=== PATIENT | female | born 1945 | race Caucasian/White ===

== ENCOUNTER 2017-04-02 14:30 | Inpatient (IN) ==
[2017-04-02 16:53] LABS: MANUAL DIFF NEEDED? NO
[2017-04-02 16:57] LABS: BASO% 0.4 % (0.0-0.8); EOS# 0.14 X1000 (0.0-0.7); EOS% 1.8 % (0.0-10.0); HEMATOCRIT 35.5 % (37.0-47.0); HEMOGLOBIN 11.7 g/dL (12.0-16.0); IMM GRAN# 0.03 X1000 (0.0-0.04); IMM GRAN% 0.4 % (0.0-0.5); LYMPH# 2.72 X1000 (1.2-3.4); LYMPH% 34.6 % (20.5-51.1); MCH 27.2 PG (27-31); MCV 82.6 FL (81-99); MONO# 0.67 X1000 (0.11-0.59); MONO% 8.5 % (1.7-9.3); MPV 9.5 FL (7.4-10.4); NEUT% 54.3 % (42.2-75.2); PLT 233 X1000 (130-400)
[2017-04-02 17:11] LABS: INR 0.95; PROTIME 9.9 Seconds (9.2-11.7)
[2017-04-02 17:13] LABS: HEMOGLOBIN A1C 5.8 % (4.8-6.0)
[2017-04-02 17:16] LABS: PTT HEPARIN PROTOCOL 25.3 Seconds
[2017-04-02 17:17] LABS: URINE CULTURE NEEDED? NO; URINE SOURCE CLEAN CATCH
[2017-04-02 17:21] LABS: BILIRUBIN URINE NEGATIVE (NEGATIVE); BLOOD URINE NEGATIVE (NEGATIVE); COLOR YELLOW; GLUCOSE URINE NEGATIVE (NEGATIVE); LEUKOCYTES URINE NEGATIVE (NEGATIVE); NITRITE URINE NEGATIVE (NEGATIVE); PH URINE 6.5; PROTEIN URINE TRACE mg/dL (NEGATIVE); SP GRAVITY URINE 1.021; TURBIDITY URINE HAZY (CLEAR); UROBILINOGEN URINE NORMAL (NORMAL)
[2017-04-02 17:22] LABS: UR EPITHELIAL CELLS <10 /HPF (<10); URINE BACTERIA NEGATIVE /HPF; URINE MICRO REVIEW NEEDED? YES; URINE RBC <10 /HPF (<10); URINE WBC <10 /HPF (<10)
[2017-04-02 17:28] LABS: URINE CASTS NONE SEEN; URINE CRYSTALS CA OXALATE PRESENT
[2017-04-02 17:35] LABS: AGAP 14; ALBUMIN 3.8 g/dL (3.5-5.0); ALKALINE PHOSPHATASE 72 U/L (32-104); BUN 16 mg/dL (8-22); CALCIUM 9.1 mg/dL (8.8-10.2); CHLORIDE 100 mmol/L (98-107); COSMO 274; GOT 19 U/L (10-30); GPT 19 U/L (10-36); SODIUM 137 mmol/L (136-145); TCO2 23 mmol/L (25-35); TOTAL BILIRUBIN 0.23 mg/dL (0.20-1.00); TOTAL PROTEIN 7.8 g/dL (6.3-8.3)
[2017-04-02] MEDS: LOVENOX SUBQ SCH (17:43)
[2017-04-02] MEDS: PROTONIX IV SCH (17:43)
[2017-04-02] MEDS: LEVAQUIN 750 MG/D5W 750 MG/150 ML IVPB IV SCH (17:43)
[2017-04-02] MEDS: SODIUM CHLORIDE 0.9% INJ SCH (17:43)
[2017-04-02] MEDS: NS + KCL 20 MEQ 1,000 ML IV SCH (17:43)
[2017-04-02] MEDS ORDERED: NORCO-5 PO PRN (18:12)
--- NOTE | 2017-04-02 18:28 | HISTORY AND PHYSICAL ---
CHIEF COMPLAINT: Chest congestion, cough, wheezing and headache not responding to outpatient treatment. HISTORY OF PRESENT ILLNESS: Ms. Caldera, 72-year-old white female patient, complaining of chest congestion, cough, expectoration which was thick, difficult to expectorate, low-grade fever, chest soreness when she coughs. The patient also had headache and sinus drainage at times. Her drainage was bloody. The patient was feeling weak. Oral intake was poor. The patient had multiple ER visits also visit to my office. Initially I gave her Ceftin then she received Z-Russ. Patient came to the emergency room here . She was checked for flu. She was given steroid pack, also Augmentin. Patient finished antibiotics. The patient claims she is not feeling well. The patient had diarrhea. No blood or mucus in the stool. She still has cough and wheezing. The patient came to my office for evaluation. As patient was not responding to outpatient treatment, she was getting sick, I decided to admit her for further care. The patient had mild nausea but no vomiting. Denied any diplopia or blurred vision. No neck stiffness. No typical chest pain. Occasional palpitations. She did have cough, wheezing. Her expectoration was thick. No hemoptysis. Epigastric discomfort, at times heartburn. Some discomfort in the throat. No vaginal discharge, spotting, bleeding. No leg swelling. The patient has significant arthritic pain in both the knees much more in the left. Patient is scheduled to have left knee replacement but waiting for her infection to be cleared. Unquantified weight loss. No heat or cold intolerance. At times, polyuria, polydipsia. No further history available at this time. The patient does feel depressed and stressed at time. ALLERGIES: Patient is allergic to naproxen, diclofenac, imipramine, diphenhydramine. CURRENT MEDICATIONS: Includes patient is on Singulair, Protonix, Zoloft, Carafate, estradiol, Norvasc. PAST MEDICAL HISTORY: Significant for hypertension, menopause, gastritis and reflux disease, situational depression, osteoarthritis. Patient had hysterectomy, hernia repair. FAMILY HISTORY: Significant for hypertension. REVIEW OF SYSTEMS: As per HPI. Otherwise unobtainable. PHYSICAL EXAMINATION: GENERAL: Elderly white female patient in mild distress. VITAL SIGNS: Blood pressure 167/76, pulse 70, respirations 20, temperature 98.3 degrees. SKIN: Senile turgor. HEENT: Head atraumatic, normocephalic. [place] conjunctivae. Anicteric sclerae. Extraocular muscle movement normal. Fundus cannot be penetrated. Good oral hygiene. No tonsillopharyngeal congestion or exudate. Ears and nose benign. Minimal tenderness on both maxillary sinus. NECK: Supple. No JVD, thyromegaly or lymphadenopathy. CHEST: Bilateral good air entry present. Bilateral expiratory wheezing. Few basal crepitations. CARDIOVASCULAR: S1 and S2 heard. No gallop or thrill. ABDOMEN: Soft. No distention. Bowel sounds present. Mild epigastric tenderness. No guarding or rigidity. EXTREMITIES: No cyanosis, clubbing. No acute DVT. LICSW: Alert, awake, able to move all 4 limbs. Patient does have significant arthritis both the knee joints. LAB DATA: Hemoglobin 11.7, hematocrit 35.5, WBC count 7.87, platelet count 233,000. PT, PTT were normal. Electrolytes fairly benign. ProBNP was normal. Hemoglobin A1c 5.8. Urinalysis was unremarkable. Patient did have some calcium oxalate crystal. CONSIDERATION: 1. Acute asthmatic bronchitis not responding to outpatient treatment. 2. Hypertension. 3. Moderate to severe headache. 4. Gastritis and reflux disease. 5. Osteoarthritis. 6. Diarrhea. 7. Situational depression. PLAN: Admit the patient. Will try IV Levaquin. Septic workup. Close observation. IV hydration. I am going to try small dose of Solu-Medrol, pulmonary toilet, bronchodilator treatment. Overall plan discussed at length with the patient and her family. DVT and GI prophylaxis. cc: Sahil Sena MD
[2017-04-02] MEDS: DUONEB (A & A) INH SCH ×2 (18:37→21:05)
[2017-04-02 18:43] LABS: ALLEN TEST YES; BE -4.1 mmoll (-3.0-3.0); BLOOD TYPE ARTERIAL; DRAW SITE L RADIAL; METHB 0.9 % (0.0-1.5); O2(CT) 16.3 mL/dL (15.0-23.0); PCO2(98.6) 31 mmHg (35-45); PO2(98.6) 108 mmHg (60-100); SAMPLE BLOOD; THB 11.8 g/dL (11.5-17.4); pH(98.6) 7.41 (7.35-7.45)
[2017-04-02 18:46] LABS: MODALITY ROOM AIR
--- NOTE | 2017-04-02 20:05 | Diag Imaging Result Document ---
PROCEDURE NAME: HEAD W/O CONTRAST - 04/02/2017 COMPARISON: None available. FINDINGS: There is no discrete intracranial mass, mass effect, or intracranial hemorrhage. There is no evidence of acute infarct given the limited sensitivity of CT versus MRI. There is no evidence of hydrocephalus. There is a tiny left frontal sinus mucous retention cyst. Otherwise, the partially imaged paranasal sinuses are unremarkable. Surrounding soft tissues and bony structures are grossly unremarkable, otherwise. IMPRESSION: 1. No evidence of acute intracranial pathology. 2. Tiny left frontal sinus mucous retention cyst.
[2017-04-02] MEDS: CARAFATE PO SCH (21:10)
--- NOTE | 2017-04-02 23:25 | Diag Imaging Result Document ---
PROCEDURE NAME: CHEST-PORTABLE - 04/02/2017 SINGLE FRONTAL RADIOGRAPH OF THE CHEST: COMPARISON: 03/26/2017. FINDINGS: There is evidence of prior granulomatous disease, stable. The lungs are grossly clear. There is no definite pleural fluid collection. There is a stable hiatal hernia. Cardiac silhouette and central vasculature are unchanged. IMPRESSION: Stable chest with no evidence of acute pathology.
[2017-04-03] MEDS: SOLU-MEDROL IV SCH ×3 (02:19→14:12)
[2017-04-03] MEDS: DUONEB (A & A) INH SCH ×5 (03:29→21:15)
[2017-04-03] MEDS ORDERED: PROTONIX PO SCH (09:00)
[2017-04-03] MEDS ORDERED: FIORICET PO PRN (09:55)
[2017-04-03] MEDS ORDERED: KLONOPIN PO PRN (09:56)
[2017-04-03] MEDS: ESTRACE PO SCH (10:20)
[2017-04-03] MEDS: SINGULAIR PO SCH (10:20)
[2017-04-03] MEDS: SYNTHROID PO SCH (10:20)
[2017-04-03] MEDS: CARAFATE PO SCH ×5 (10:20→22:16)
[2017-04-03] MEDS: ZOLOFT PO SCH (10:20)
[2017-04-03] MEDS: NORVASC PO SCH (10:20)
--- NOTE | 2017-04-03 10:38 | PROGRESS NOTE ---
DATE: 04/03/2017 SUBJECTIVE: Ms. Caldera is doing fair. She is still complaining of cough, chest congestion, headache. No nausea. The patient still has diarrhea. No blood or mucus in the stool. The patient claims she was not able to sleep well last night. Her workup, including CT scan, chest x- ray, and blood gas, results reviewed and discussed with the patient. OBJECTIVE: Vital Signs: Her vital signs were noted. Neck: Supple. No JVD. Lungs: Bilateral expiratory wheezing. Cardiovascular: S1 and S2 heard. Abdomen: Soft, globular. Bowel sounds present. Extremities: No cyanosis, clubbing. No acute DVT. Central Nervous System: Alert, awake, able to move all 4 limbs. CONSIDERATION/PLAN: Acute asthmatic bronchitis, not responding to outpatient treatment. The patient claims it is very hard for her to expectorate. I am going to add Mucomyst nebulizer treatment, decrease her steroid to every 12 hours. The patient does have problems sleeping at night. The patient claims [place] is too strong. I will try Esgic for her headache. Her other problems include hypothyroidism, osteoarthritis, hypertension. Labs and medications noted. We will continue current treatment and close observation. The overall plan was discussed with the patient and family, and they are in agreement. Her blood gas results reviewed. cc: Sahil Sena MD
[2017-04-03] MEDS: MUCOMYST 20% INH SCH ×2 (14:55→21:15)
[2017-04-03] MEDS: NS + KCL 20 MEQ 1,000 ML IV SCH ×2 (15:46→17:40)
[2017-04-03] MEDS: SODIUM CHLORIDE 0.9% INJ SCH (17:40)
[2017-04-03] MEDS: LOVENOX SUBQ SCH (17:40)
[2017-04-03] MEDS: PROTONIX IV SCH (17:40)
[2017-04-03] MEDS: LEVAQUIN 750 MG/D5W 750 MG/150 ML IVPB IV SCH (18:00)
[2017-04-03] MEDS: NORCO-5 PO PRN (22:17)
[2017-04-04] MEDS: SOLU-MEDROL IV SCH ×2 (03:22→13:20)
[2017-04-04] MEDS: NS + KCL 20 MEQ 1,000 ML IV SCH ×2 (03:22→16:21)
[2017-04-04] MEDS: DUONEB (A & A) INH SCH ×4 (03:26→19:34)
[2017-04-04 06:20] LABS: MANUAL DIFF NEEDED? NO
[2017-04-04 06:54] LABS: HEMATOCRIT 32.3 % (37.0-47.0); HEMOGLOBIN 10.3 g/dL (12.0-16.0); IMM GRAN# 0.06 X1000 (0.0-0.04); IMM GRAN% 0.8 % (0.0-0.5); LYMPH% 17.7 % (20.5-51.1); MCH 26.7 PG (27-31); MCHC 31.9 g/dL (33-37); MCV 83.7 FL (81-99); MONO# 0.34 X1000 (0.11-0.59); MONO% 4.6 % (1.7-9.3); MPV 9.7 FL (7.4-10.4); NEUT% 76.9 % (42.2-75.2); PLT 220 X1000 (130-400); RBC 3.86 XMIL (4.2-5.4)
[2017-04-04 07:06] LABS: AGAP 12; ALBUMIN 3.6 g/dL (3.5-5.0); ALKALINE PHOSPHATASE 63 U/L (32-104); BUN 12 mg/dL (8-22); CALCIUM 9.2 mg/dL (8.8-10.2); CHLORIDE 107 mmol/L (98-107); COSMO 282; GOT 13 U/L (10-30); GPT 14 U/L (10-36); POTASSIUM 4.5 mmol/L (3.5-5.1); SODIUM 140 mmol/L (136-145); TCO2 21 mmol/L (25-35); TOTAL BILIRUBIN 0.19 mg/dL (0.20-1.00); TOTAL PROTEIN 7.5 g/dL (6.3-8.3)
--- NOTE | 2017-04-04 07:22 | PROGRESS NOTE ---
DATE: 04/04/2017 SUBJECTIVE: Ms. Caldera is feeling somewhat better today. She still has some sinus drainage and headache. Yesterday patient claims Esgic was not helping and she wanted to change to [place] and we did. She was able to rest better. No typical chest pain. No diarrhea, no runny nose, stuffy nose. OBJECTIVE: Vital Signs: Her vital signs reviewed. Lungs: Bilateral occasional wheezing. Cardiovascular: S1 and S2 heard. Abdomen: Soft. No distention. Bowel sounds present. Extremities: No cyanosis, clubbing. No acute deep venous thrombosis. BEHAVIORAL MEDICAL DIRECTOR: Alert, awake, able to move all 4 limbs. LAB DATA: Done today. CBC fairly benign. I am waiting for electrolytes result. I am going to get x-ray of the paranasal sinuses. CONSIDERATION: 1. Acute asthmatic bronchitis. I started her on Mucomyst. The patient is on steroid and antibiotics and nebulizer treatment. Patient's seems to be doing better. H 2. Hypertension. 3. Osteoarthritis. 4. Hypothyroidism. Overall, the patient seems to be improving slowly. We will continue current treatment and close observation. cc: Sahil Sena MD
--- NOTE | 2017-04-04 08:23 | Diag Imaging Result Document ---
PROCEDURE NAME: PARANASAL SINUSES - 04/04/2017 CT OF THE PARANASAL SINUSES WITHOUT CONTRAST: COMPARISON: CT head dated 04/02/2017. No prior dedicated paranasal sinus CT is available for comparison. FINDINGS: There is paranasal sinus mucosal thickening involving the maxillary sinuses bilaterally with bilateral maxillary sinus air-fluid levels suggesting acute sinusitis. There is only mild ethmoid sinus mucosal thickening. The ostiomeatal units are patent. The nasal cavity is clear. The mastoid air cells are clear. The surrounding bony structures are grossly intact. Surrounding soft tissues are grossly unremarkable. IMPRESSION: Bilateral maxillary and minimal ethmoid sinus mucosal disease with maxillary sinus air-fluid levels suggesting acute sinusitis.
[2017-04-04] MEDS: MUCOMYST 20% INH SCH (09:07)
[2017-04-04] MEDS ORDERED: NITROGLYCERIN SL ONE (09:44)
[2017-04-04] MEDS ORDERED: NITROGLYCERIN ONE (09:47)
[2017-04-04] MEDS ORDERED: ADENOCARD IV ONE (09:53)
[2017-04-04] MEDS ORDERED: MORPHINE ONE (09:54)
[2017-04-04] MEDS ORDERED: MORPHINE IV ONE (09:54)
[2017-04-04] MEDS ORDERED: ASPIRIN EC PO ONE (10:34)
[2017-04-04] MEDS ORDERED: MORPHINE IV PRN (10:50)
[2017-04-04] MEDS ORDERED: MAGNESIUM SULFATE 2 GM/S.W.I. 2 GM/50 ML IVPB IV ONE (10:50)
[2017-04-04] MEDS ORDERED: LOPRESSOR PO SCH (11:30)
[2017-04-04] MEDS: CARAFATE PO SCH ×5 (11:35→20:18)
[2017-04-04] MEDS: ABREVA CREAM TOP SCH ×5 (11:35→20:18)
[2017-04-04] MEDS: NORVASC PO SCH (11:42)
[2017-04-04] MEDS: SINGULAIR PO SCH (11:42)
[2017-04-04] MEDS: ESTRACE PO SCH (11:42)
[2017-04-04] MEDS: ZOLOFT PO SCH (11:42)
[2017-04-04] MEDS: SYNTHROID PO SCH (11:43)
--- NOTE | 2017-04-04 11:47 | PROGRESS NOTE ---
DATE: 04/04/2017 SUBJECTIVE: I came to see Ms. Werner avelar because the patient was complaining of chest pain and she had tachycardia. Telemetry called. Her heart rate was going up. It was 140-160. The patient was complaining of chest pain which was left precordial. What she described was tightness. She did have mild shortness of breath which patient claims she had most of the time. We gave her nitroglycerin with no significant improvement. I gave her 2 mg of morphine. The patient felt some better. The patient also received 6 mg of adenosine. Heart rate from 140 came down to 120. The patient felt better. She was resting. Because of her chest pain, we did order cardiac isoenzymes. Decided to transfer patient to ICU for close monitoring. Her risk factors include hypertension, hyperlipidemia, menopause. Patient admitted for acute asthmatic bronchitis. The patient does have gastritis and reflux disease. She denied any nausea or vomiting. When I evaluated this morning, patient was feeling better. PHYSICAL EXAMINATION: Vital Signs: Her vital signs noted. Neck: Supple. No JVD. Lungs: Bilateral good air entry present. CVS: S1 and S2. Tachycardia. Abdomen: Soft. No distention. Bowel sounds present. Extremities: No cyanosis, clubbing. No acute DVT. SVP PROGRAMMATIC TV: Alert, awake. Able to move all 4 limbs. LAB DATA: Done this morning reviewed. We are going to check serial EKG, cardiac isoenzymes. PLAN: Cardiology consult. The patient received morphine. I am going to check her magnesium. Overall plan discussed with the patient and her . Her cardiac isoenzymes were negative. Her magnesium was 1.5. I am going to supplement magnesium. CONSIDERATION: 1. Chest pain, rule out myocardial infarction. 2. Supraventricular tachycardia. 3. Hypertension. 4. Sinusitis. 5. Acute asthmatic bronchitis. 6. Gastritis and reflux disease. cc: Sahil Sena MD
--- NOTE | 2017-04-04 12:32 | Diag Imaging Result Document ---
PROCEDURE NAME: CHEST-PORTABLE - 04/04/2017 COMPARISON: 04/02/2017. FINDINGS: Electrode pad projects over the left chest wall. The lungs appear to be grossly clear. There is no definite pleural fluid collection. Cardiac silhouette and central vasculature are grossly unremarkable. IMPRESSION: No evidence of acute chest pathology by plain radiograph.
--- NOTE | 2017-04-04 14:16 | CONSULTATION ---
DATE OF CONSULTATION: 04/04/2017 REASON FOR CONSULTATION: Cardiology was consulted for SVT. HISTORY OF PRESENT ILLNESS: Ms. Michaela Caldera is a 72-year-old lady with who has history of hypertension, was admitted with cough, expectoration, low-grade fevers, chest soreness, headache and sinus drainage. She was admitted with acute bronchitis and sinusitis, started on antibiotics. Had multiple visits to the ER. Initially she had been given Ceftin, Z-Russ and Augmentin. She finished her antibiotics. She came in with worsening cough and wheezing and was admitted and antibiotics started. Today she had a breathing treatment and after that, she went into rapid ventricular rate and had electrocardiogram done that revealed supraventricular tachycardia. She was given adenosine, converted to sinus rhythm, and transferred to ICU. She is currently in normal sinus rhythm. Associated with this tachycardia, she had some chest tightness and diaphoresis. Prior to this episode, she has not had any previous cardiac history of SVT or coronary artery disease. REVIEW OF SYSTEMS: A 14-point review of system was done.GI System: There is no history of nausea, vomiting, diarrhea. There is no history of melena. Central nervous system: No focal weakness to suggest a CVA or TIA. Gu system: There is no dysuria or hematuria. Respiratory system: As above. Cardiovascular System: As above. ALLERGIES: The patient is allergic to Naprosyn, diclofenac, imipramine, and diphenhydramine. PAST MEDICAL HISTORY: Hypertension, gastroesophageal reflux disease, depression, osteoarthritis. PAST SURGICAL HISTORY: Hysterectomy and hernia repair. SOCIAL HISTORY: She does not smoke. There is no history of alcohol abuse. CURRENT MEDICATIONS: Amlodipine 5 mg a day, clonazepam 0.5 b.i.d., Lovenox for 30 mg subcutaneously, Estrace, Robitussin, levofloxacin IV 750 mg, levothyroxine 100, prednisone, metoprolol 25 mg b.i.d. PHYSICAL EXAMINATION: Vital Signs: Blood pressure was 114/60. Cardiovascular: Normal jugular venous pressure. First and second heart sounds were heard. There is no S3 gallop. Respiratory: Bilateral expiratory wheeze. Abdomen: Soft, nontender. There was no guarding or rigidity. Bowel sounds were heard. Central nervous system: Alert and oriented. Moving all 4 extremities. Extremities: Examination of extremities revealed no pedal edema. HEENT: Atraumatic, normocephalic. Pupils were equal and reacting to light. LABORATORY STUDIES: Sodium 140, potassium 4.5, BUN 12, creatinine 0.8. Cardiac enzyme negative. WBC 7.3, hemoglobin 10.3, hematocrit 32, platelet count of 220,000. DIAGNOSTIC DATA: Head CT and sinuses CT done. There was no obvious intracardiac intracranial pathology. Sinus CT revealed bilateral maxillary and ethmoid sinusitis with air-fluid levels. ASSESSMENT AND PLAN: Ms. Michaela Caldera is a 72-year-old lady with history of hypertension who is admitted with bronchitis and sinusitis. She is on IV antibiotics. Today she went into supraventricular tachycardia and which was converted to sinus rhythm with Adenosine. RECOMMENDATIONS: 1. She has significant wheezing. I will discontinue the beta-blockers and Norvasc. We will put her on Cardizem 60 mg p.o. q.8 h. and change to long-acting Cardizem in the morning. 2. We will get an echocardiogram to assess cardiac and valvular function. 3. She has significant bronchitis and sinusitis. Once clinically she is better from the bronchitis and sinusitis, we will plan for a stress test to rule out ischemia. Thank you for the consult. We will follow hospital course. cc: MD Sahil Baum MD
--- NOTE | 2017-04-04 15:19 | ECHO REPORT ---
ORDER DATE: 04/04/2017 ECHOCARDIOGRAPHIC MEASUREMENTS: 1. Interventricular septum 1.2. Left ventricular posterior wall 1.1. Diastolic diameter 4.2. Left atrium 4.4. Aorta 2.4. Mitral valve was normal. Tricuspid valve was normal. 2. Aortic valve leaflets were trileaflet, mildly sclerosed, opening normally. Pulmonic valve was normal. There is trace pulmonary regurgitation. Normal left ventricular cavity size. Estimated ejection fraction of 60-65%. There is mild left atrial enlargement. 3. Doppler studies reveal mild tricuspid regurgitation. Peak velocity across the tricuspid valve less than 2 m/sec. There is trace to mild mitral regurgitation. 4. Peak velocity across the aortic valve less than 2 m/sec. By Doppler studies there is no aortic stenosis or regurgitation. 5. There is no pericardial effusion or obvious intracardiac mass or thrombus seen. cc: MD Sahil Baum MD
[2017-04-04] MEDS: CARDIZEM PO SCH ×2 (16:19→20:18)
[2017-04-04] MEDS: SODIUM CHLORIDE 0.9% INJ SCH (16:28)
[2017-04-04] MEDS: PROTONIX IV SCH (16:28)
[2017-04-04] MEDS: LOVENOX SUBQ SCH (17:24)
[2017-04-04] MEDS: LEVAQUIN 750 MG/D5W 750 MG/150 ML IVPB IV SCH (17:24)
[2017-04-04] MEDS: NORCO-5 PO PRN (22:06)
[2017-04-05] MEDS: NS + KCL 20 MEQ 1,000 ML IV SCH ×4 (00:01→16:08)
[2017-04-05] MEDS: SOLU-MEDROL IV SCH ×2 (01:59→14:21)
[2017-04-05] MEDS: DUONEB (A & A) INH SCH ×4 (03:51→21:02)
--- NOTE | 2017-04-05 05:33 | EKG Report ---
Test Performed on : 04/04/2017 11:46:53 AM Test Reason : Chest Pain Blood Pressure : / mmHG Vent. Rate : 111 BPM Atrial Rate : 111 BPM P-R Int : 146 ms QRS Dur : 070 ms QT Int : 296 ms P-R-T Axes : 057 020 239 degrees QTc Int : 402 ms Sinus tachycardia. Nonspecific ST and T wave abnormality Abnormal ECG When compared with ECG of 04-APR-2017 09:41, (Unconfirmed) Vent. rate has decreased BY [address] no longer depressed in Lateral leads Confirmed by Will LACY, Anthony Rodriguez ([id number]) on 04/05/2017 11:23:37 AM
--- NOTE | 2017-04-05 05:33 | EKG Report ---
Test Performed on : 04/04/2017 09:41:21 AM Test Reason : Chest Pain Blood Pressure : / mmHG Vent. Rate : 169 BPM Atrial Rate : 170 BPM P-R Int : 000 ms QRS Dur : 074 ms QT Int : 282 ms P-R-T Axes : 000 025 228 degrees QTc Int : 472 ms Supraventricular tachycardia. Marked ST abnormality, possible inferior subendocardial injury Abnormal ECG When compared with ECG of 02-APR-2017 16:21, (Unconfirmed) Vent. rate has increased BY [address] now depressed in Inferior leads ST now depressed in Anterolateral leads Inverted T waves have replaced nonspecific T wave abnormality in Inferior leads Inverted T waves have replaced nonspecific T wave abnormality in Lateral leads Confirmed by Will LACY, Anthony Rodriguez ([id number]) on 04/05/2017 11:23:30 AM
--- NOTE | 2017-04-05 06:04 | EKG Report ---
Test Performed on : 04/02/2017 4:21:17 PM Test Reason : bronchitis Blood Pressure : / mmHG Vent. Rate : 071 BPM Atrial Rate : 071 BPM P-R Int : 162 ms QRS Dur : 082 ms QT Int : 378 ms P-R-T Axes : 023 016 -39 degrees QTc Int : 410 ms Normal sinus rhythm. Nonspecific T wave abnormality Abnormal ECG No previous ECGs available Confirmed by Will LACY, Anthony Rodriguez ([id number]) on 04/05/2017 11:20:19 AM
--- NOTE | 2017-04-05 07:11 | PROGRESS NOTE ---
DATE: 04/05/2017 SUBJECTIVELY: Ms. Caldera is doing better. I transferred her to the unit yesterday. Patient had supraventricular tachycardia associated with chest pain. Myocardial infarction ruled out by negative cardiac isoenzymes. Patient EKG revealed nonspecific ST-T wave changes. The patient denied any chest pain. Her headache is better with [place]. No fever or chills. Denied any nausea or vomiting. OBJECTIVE: Vital signs: Reviewed. Neck: Is supple. No JVD. Lungs: Bilateral good air entry present. Heart: S1 and S2 heard. Abdomen: Soft, globular. Bowel sounds present. WOOD PATTERNMAKER APPRENTICE: Alert, awake. Able to move all 4 limbs. CONSIDERATION: The patient had tenderness on maxillary sinuses. Blood or cardiac isoenzymes were negative. CT scan of the sinuses did reveal sinusitis. Overall patient is doing better. Cardiology evaluation reviewed. PLAN: Plan is to continue current treatment. I am going to transfer patient to telemetry bed. Continue rest of the treatment and close observation. Overall plan discussed with the patient. She is in agreement. cc: Sahil Sena MD
[2017-04-05] MEDS: ABREVA CREAM TOP SCH ×5 (09:59→20:29)
[2017-04-05] MEDS: ZOLOFT PO SCH (10:02)
[2017-04-05] MEDS: SINGULAIR PO SCH (10:03)
[2017-04-05] MEDS: SYNTHROID PO SCH (10:03)
[2017-04-05] MEDS: CARDIZEM PO SCH (10:03)
[2017-04-05] MEDS: CARAFATE PO SCH ×4 (10:03→20:29)
[2017-04-05] MEDS: ESTRACE PO SCH (10:35)
[2017-04-05] MEDS: CARDIZEM CD PO SCH (15:15)
[2017-04-05] MEDS: PROTONIX IV SCH (16:50)
[2017-04-05] MEDS: SODIUM CHLORIDE 0.9% INJ SCH (16:50)
[2017-04-05] MEDS: LOVENOX SUBQ SCH (16:52)
[2017-04-05] MEDS: LEVAQUIN 750 MG/D5W 750 MG/150 ML IVPB IV SCH (16:53)
[2017-04-05] MEDS: ROBITUSSIN-AC PO PRN (18:06)
[2017-04-05] MEDS: NORCO-5 PO PRN (20:35)
[2017-04-06] MEDS: NS + KCL 20 MEQ 1,000 ML IV SCH ×3 (01:16→12:29)
[2017-04-06] MEDS: SOLU-MEDROL IV SCH ×2 (02:40→13:23)
[2017-04-06] MEDS: DUONEB (A & A) INH SCH ×4 (03:09→19:40)
--- NOTE | 2017-04-06 07:22 | PROGRESS NOTE ---
DATE: 04/06/2017 SUBJECTIVE: Ms. Caldera is doing fair. The patient is still has a cough and chest congestion, scratchy throat. No hemoptysis or spitting up of blood. No high-grade fever or chills. No chest pain. OBJECTIVE: Vital Signs: Noted. Neck: Supple. No JVD. Lungs: Bilateral good air entry present. Cardiovascular: S1 and S2 heard. Abdomen: Soft, nontender. Bowel sounds present. Extremities: No cyanosis, clubbing. No acute DVT. KNITTER MECHANIC: Alert, awake. Able to move all 4 limbs. CONSIDERATIONS: 1. Patient admitted with acute asthmatic bronchitis, not responding to outpatient treatment. The patient did have 2 rounds of antibiotics prior to admission. The patient was on cough medicine, bronchodilator treatment. The patient is still having cough, congestion. The patient does have sinusitis. I am going to get expert opinion of Dr. Palacios for further evaluation. 2. Supraventricular tachycardia. On Cardizem. Doing better. 3. Hypothyroidism. On Synthroid. 4. Gastritis and reflux disease. On Protonix. PLAN: Labs and medications noted. Overall plan discussed with the patient and she is in agreement. Patient is waiting for telemetry bed. Her chest x-ray was negative. cc: Sahil Sena MD
[2017-04-06] MEDS: CARDIZEM CD PO SCH (08:39)
[2017-04-06] MEDS: SINGULAIR PO SCH (08:39)
[2017-04-06] MEDS: ZOLOFT PO SCH (08:39)
[2017-04-06] MEDS: SYNTHROID PO SCH (08:39)
[2017-04-06] MEDS: ESTRACE PO SCH (08:39)
[2017-04-06] MEDS: CARAFATE PO SCH ×4 (08:39→20:51)
[2017-04-06] MEDS: ABREVA CREAM TOP SCH ×5 (08:40→21:00)
[2017-04-06] MEDS: SODIUM CHLORIDE 0.9% INJ SCH (16:17)
[2017-04-06] MEDS: LOVENOX SUBQ SCH (16:18)
[2017-04-06] MEDS: LEVAQUIN 750 MG/D5W 750 MG/150 ML IVPB IV SCH (16:18)
[2017-04-06] MEDS: PROTONIX IV SCH (16:18)
[2017-04-06 17:42] LABS: MANUAL DIFF NEEDED? NO
[2017-04-06 18:31] LABS: AGAP 13; ALBUMIN 3.4 g/dL (3.5-5.0); ALKALINE PHOSPHATASE 56 U/L (32-104); BUN 20 mg/dL (8-22); CALCIUM 9.3 mg/dL (8.8-10.2); CHLORIDE 100 mmol/L (98-107); COSMO 267; GOT 29 U/L (10-30); GPT 18 U/L (10-36); MAGNESIUM 1.7 mg/dL (1.5-2.7); SODIUM 131 mmol/L (136-145); TCO2 18 mmol/L (25-35); TOTAL BILIRUBIN 0.23 mg/dL (0.20-1.00); TOTAL PROTEIN 7.3 g/dL (6.3-8.3)
[2017-04-06 19:21] LABS: HEMATOCRIT 34.2 % (37.0-47.0); HEMOGLOBIN 10.8 g/dL (12.0-16.0); IMM GRAN% 1.1 % (0.0-0.5); LYMPH# 1.22 X1000 (1.2-3.4); LYMPH% 13.8 % (20.5-51.1); MCH 26.4 PG (27-31); MCHC 31.6 g/dL (33-37); MCV 83.6 FL (81-99); MONO# 0.29 X1000 (0.11-0.59); MONO% 3.3 % (1.7-9.3); MPV 9.6 FL (7.4-10.4); NEUT% 81.8 % (42.2-75.2); PLT 195 X1000 (130-400); RBC 4.09 XMIL (4.2-5.4)
--- NOTE | 2017-04-06 20:25 | CONSULTATION ---
DATE OF CONSULTATION: 04/06/2017 REQUESTING PHYSICIAN: Dr. Sena. REASON FOR CONSULTATION: Persistent bronchitis and cough. HISTORY OF PRESENT ILLNESS: Ms. Caldera in a 72-year-old white female, never smoker, who reports yearly episodes of sinusitis requiring steroids and antibiotics for the last 12-15 years. The patient also reports an admission to the hospital 2-3 years ago with sinus congestion and facial erythema associated with a staph infection. The patient reports earlier this year she developed sores in her nose along with facial pain. She was evaluated by Dr. Travis and received mupirocin and a steroid cream without improvement. She did not improve and has received Ceftin, Augmentin and Z-Russ without improvement. In late February she developed increased cough, increased sputum production. The patient has been evaluated by Orthopedics for a knee replacement but due to ongoing infection this has been delayed. The patient was admitted to the hospital 04/02/2017 but developed SVT and was transferred to the ICU. A chest x-ray was performed on admission which revealed no evidence of acute disease. CT scan of the sinuses reveal bilateral maxillary sinusitis with air fluid levels. The patient does report a history of gastroesophageal reflux with prior esophageal dilatation. She has had 1-2 episodes of reflux and nocturnal emesis but none in the last month. PAST MEDICAL HISTORY: 1. Seasonal allergic rhinitis. 2. Gastroesophageal reflux. 3. History of esophageal sphincter status post dilatation. This was performed in 2009 by her best recollection. 4. Hypothyroidism. 5. Hypertension. 6. Depression. 7. Osteoarthritis. 8. Status post hysterectomy. 9. Status post hernia repair. SOCIAL HISTORY: Never smoker. Nondrinker. FAMILY HISTORY: Noncontributory to the current presentation. REVIEW OF SYSTEMS: As noted in the HPI. PHYSICAL EXAMINATION: General: Reveals a well-developed, well-nourished, white female, resting comfortably and in no distress. Vital signs: BP 138/73, heart rate 91, respiration rate 19, oxygen saturation 96% on 2 L per nasal cannula. HEENT: Pupils are equal and reactive. Oropharynx is clear. Neck: Supple. Chest: Reveals occasional rhonchi bilaterally. Cardiac Exam: Regular rate. Normal S1, normal S2. Abdomen: Obese and soft. Extremities: Without edema. LABORATORIES: Cultures are negative. White blood count 7.35, hemoglobin 10.3, platelet count 220,000. Chemistry. Sodium 131, potassium 5.0, chloride 100, bicarbonate 18, BUN 20, creatinine 0.7. IMPRESSION: A 72-year-old with seasonal allergic rhinitis, probable acute bacterial sinusitis (Staphylococcus is suspected given previous treatments without improvement), acute bacterial bronchitis likely related to soilage from her sinusitis, and gastroesophageal reflux. The patient did report some sores in her nose earlier this year which may have been related to staphylococcus. I think a granulomatous process such as Nicolas's would be much less likely but this will also be evaluated. Given her recurrent infections, I will check an SPEP and an immunoglobulin levels. Given her prior history of esophageal stricture, I believe it would also be reasonable to evaluate her esophagus during this hospital stay. RECOMMENDATIONS: 1. Initiate an oral antibiotic which will cover MRSA. It is anticipated she will need this antibiotic for 3-4 weeks. 2. Check ANCA level for Nicolas's although this is felt to be less likely. 3. Check SPEP and immunoglobulin levels to rule out underlying immunodeficiency. 4. Barium swallow to rule out significant esophageal stricture. 5. Additional recommendations pending hospital course. cc: MD Sahil Jarrett MD
[2017-04-06] MEDS: SEPTRA DS PO SCH (20:51)
[2017-04-06] MEDS: NORCO-5 PO PRN (22:13)
[2017-04-07] MEDS: SOLU-MEDROL IV SCH ×2 (01:58→13:07)
[2017-04-07] MEDS: DUONEB (A & A) INH SCH ×4 (03:52→21:38)
--- NOTE | 2017-04-07 07:34 | PROGRESS NOTE ---
DATE: 04/07/2017 SUBJECTIVE: Ms. Caldera is doing fairly well. She still has cough and some wheezing. No high- grade fever or chills. I appreciate Dr. Palacios's help managing the patient. No nausea or vomiting. No dysuria or hematuria. OBJECTIVE: Her vital signs noted. Blood pressure doing better. Neck is supple. No JVD. Lungs: Bilateral good air entry present. Occasional wheezing. CVS: S1 and S2 heard. Abdomen soft, globular. Bowel sounds present. Extremities: No cyanosis, clubbing. No acute DVT. AUDITOR: Alert, awake, able to move all 4 limbs. LABORATORY DATA: Her lab data done yesterday noted. CBC was fairly benign. Electrolyte result noted. Her magnesium was 1.7, sodium 131. CONSIDERATION: 1. Acute asthmatic bronchitis. 2. Supraventricular tachycardia. 3. Hypothyroidism. 4. Gastritis and reflux disease. 5. Depression. Labs and medication noted. We will continue current treatment. Close observation. cc: Sahil Sena MD
[2017-04-07] MEDS: ZOLOFT PO SCH (08:44)
[2017-04-07] MEDS: SINGULAIR PO SCH (08:44)
[2017-04-07] MEDS: SYNTHROID PO SCH (08:45)
[2017-04-07] MEDS: ESTRACE PO SCH (08:45)
[2017-04-07] MEDS: CARAFATE PO SCH ×4 (08:45→20:26)
[2017-04-07] MEDS: SEPTRA DS PO SCH ×2 (08:45→20:26)
[2017-04-07] MEDS: ABREVA CREAM TOP SCH ×5 (08:46→20:28)
--- NOTE | 2017-04-07 10:34 | Diag Imaging Result Document ---
PROCEDURE NAME: JEAN PAUL SWALLOW-ESOPHAGUS - 04/07/2017 DOUBLE CONTRAST ESOPHAGRAM: COMPARISON: None. FINDINGS: Total fluoroscopy time was 35 seconds. Sixty-two images were obtained. The esophagus is normal in size and contour. There is a tiny hiatal hernia. No reflux. There are some mild-to- moderate tertiary waves present in the lower esophagus compatible with presbyesophagus. There are also numerous rather large degenerative osteophytes at the cervical spine, some of which are causing mild impressions on the posterior wall of the hypopharynx and esophagus, but not causing any significant obstruction. No aspiration or penetration. IMPRESSION: Mild presbyesophagus. Cervical spondylosis. Tiny hiatal hernia.
[2017-04-07] MEDS: CARDIZEM CD PO SCH (11:13)
[2017-04-07] MEDS: LOVENOX SUBQ SCH (16:50)
[2017-04-07] MEDS: LEVAQUIN 750 MG/D5W 750 MG/150 ML IVPB IV SCH (16:50)
[2017-04-07] MEDS: PROTONIX IV SCH (16:50)
[2017-04-07] MEDS: SODIUM CHLORIDE 0.9% INJ SCH (16:50)
[2017-04-07] MEDS: NORCO-5 PO PRN (21:50)
[2017-04-08] MEDS: SOLU-MEDROL IV SCH ×2 (02:04→15:18)
[2017-04-08] MEDS: DUONEB (A & A) INH SCH ×4 (03:32→20:30)
--- NOTE | 2017-04-08 07:45 | PROGRESS NOTE ---
DATE: 04/08/2017 SUBJECTIVE: Ms. Caldera is doing fair. The patient still has a cough with scanty sputum production. At times patient does have tachycardia. Patient is on Cardizem CD. Her blood pressure is doing better. Oral intake is fair. No nausea or vomiting. Vague chest pain. OBJECTIVE: Vital Signs: Noted. Neck: Supple. No JVD. Lungs: Bilateral occasional wheezing. Cardiovascular: S1 and S2 heard. Abdomen: Soft, globular. Bowel sounds present. MANAGER QUANTITATIVE: Alert, awake. Able to move all 4 limbs. ASSESSMENT: Her problems include: 1. Acute asthmatic bronchitis. 2. Sinusitis. 3. Gastritis and reflux disease. 4. Hypothyroidism. PLAN: Patient's barium swallow results reviewed. We are still waiting for AVANI, ANCA, and other immunologic test results. Meanwhile, we will continue current treatment. Perishable Freight Inspector and school program director are following patient with us. I already placed an order for the patient to be transferred to floor 3 days ago. They are waiting for a telemetry bed. cc: Sahil Sena MD
[2017-04-08] MEDS: SEPTRA DS PO SCH ×3 (08:09→23:44)
[2017-04-08] MEDS: SINGULAIR PO SCH (08:09)
[2017-04-08] MEDS: CARDIZEM CD PO SCH (08:09)
[2017-04-08] MEDS: CARAFATE PO SCH ×5 (08:09→23:44)
[2017-04-08] MEDS: ZOLOFT PO SCH (08:09)
[2017-04-08] MEDS: ABREVA CREAM TOP SCH ×5 (08:10→23:44)
[2017-04-08] MEDS: SYNTHROID PO SCH (08:10)
[2017-04-08] MEDS: ESTRACE PO SCH (08:10)
[2017-04-08] MEDS ORDERED: LEXISCAN ONE (12:18)
--- NOTE | 2017-04-08 15:16 | Diag Imaging Result Document ---
PROCEDURE NAME: MYOCARDIAL PERF SCAN, STR/REST - 04/08/2017 INDICATION FOR THE STUDY: Dyspnea. SVT. PROCEDURES PERFORMED: 1. Lexiscan stress. 2. One-day stress rest myocardial perfusion imaging. PROCEDURE IN DETAIL: Ms. Caldera was brought to the [facility] and had a resting study with injection of 10.8 mCi of technetium-99m sestamibi with the usual imaging protocol utilized. She subsequently was brought back down and had a Lexiscan stress and peak stress. She was injected with 30.7 mCi of technetium-99m sestamibi with the usual imaging protocol utilized. FINDINGS: LEXISCAN STRESS RESULTS: 1. Baseline EKG shows sinus rhythm, somewhat diffuse mild ST depression and PVCs noted. Heart rate was 102 on a baseline EKG. 2. There is no clear evidence of ischemic related EKG changes. Baseline EKG abnormalities somewhat limit the ability to identify ischemia. In addition, there continued to be PVCs occurring throughout the course of the study. PERFUSION IMAGING RESULTS: 1. No evidence of abnormal extracardiac uptake. 2. TID ratio 0.84. 3. Perfusion imaging demonstrates an extremely small size, mild intensity defect in the anterior apical and mid anterior wall. This defect is extremely small and narrow, and does suggest reversibility. This could be an extremely small burden of ischemia. Overall I believe this denotes a low risk study based on the extremely small area noted. 4. Normal ejection fraction 82%. The end-diastolic volume is 70, end-systolic volume is 13. Normal wall motion. cc: MD Columba Hung PA
[2017-04-08] MEDS: LOVENOX SUBQ SCH (16:48)
[2017-04-08] MEDS: SODIUM CHLORIDE 0.9% INJ SCH (16:48)
[2017-04-08] MEDS: LEVAQUIN 750 MG/D5W 750 MG/150 ML IVPB IV SCH (16:48)
[2017-04-08] MEDS: NORCO-5 PO PRN (16:48)
[2017-04-08] MEDS: PROTONIX IV SCH (16:48)
[2017-04-08] MEDS: ROBITUSSIN-AC PO PRN (22:05)
[2017-04-09] MEDS: SOLU-MEDROL IV SCH (03:36)
[2017-04-09] MEDS: DUONEB (A & A) INH SCH ×4 (04:23→20:10)
[2017-04-09 07:54] LABS: MANUAL DIFF NEEDED? NO
[2017-04-09 08:08] LABS: BASO% 0.1 % (0.0-0.8); HEMATOCRIT 32.8 % (37.0-47.0); HEMOGLOBIN 10.8 g/dL (12.0-16.0); IMM GRAN# 0.12 X1000 (0.0-0.04); IMM GRAN% 1.7 % (0.0-0.5); LYMPH# 0.83 X1000 (1.2-3.4); LYMPH% 11.4 % (20.5-51.1); MCH 26.8 PG (27-31); MCHC 32.9 g/dL (33-37); MCV 81.4 FL (81-99); MONO% 4.1 % (1.7-9.3); MPV 9.8 FL (7.4-10.4); NEUT% 82.7 % (42.2-75.2); PLT 189 X1000 (130-400); RBC 4.03 XMIL (4.2-5.4)
[2017-04-09 08:33] LABS: AGAP 13; ALBUMIN 3.8 g/dL (3.5-5.0); ALKALINE PHOSPHATASE 47 U/L (32-104); BUN 22 mg/dL (8-22); CHLORIDE 98 mmol/L (98-107); COSMO 271; GOT 16 U/L (10-30); GPT 18 U/L (10-36); MAGNESIUM 1.9 mg/dL (1.5-2.7); SODIUM 132 mmol/L (136-145); TCO2 21 mmol/L (25-35); TOTAL BILIRUBIN 0.27 mg/dL (0.20-1.00); TOTAL PROTEIN 6.9 g/dL (6.3-8.3)
[2017-04-09] MEDS: ESTRACE PO SCH (09:06)
[2017-04-09] MEDS: SINGULAIR PO SCH (09:06)
[2017-04-09] MEDS: PREDNISONE PO SCH (09:06)
[2017-04-09] MEDS: CARAFATE PO SCH ×4 (09:06→21:34)
[2017-04-09] MEDS: ABREVA CREAM TOP SCH ×5 (09:07→21:37)
[2017-04-09] MEDS: CARDIZEM CD PO SCH (09:07)
[2017-04-09] MEDS: ZOLOFT PO SCH (09:07)
[2017-04-09] MEDS: SYNTHROID PO SCH (09:07)
[2017-04-09] MEDS: SEPTRA DS PO SCH ×2 (09:07→21:34)
--- NOTE | 2017-04-09 09:07 | PROGRESS NOTE ---
DATE: 04/09/2017 SUBJECTIVE: Ms. Caldera is doing fair. The patient still has chest congestion and cough, though less, vague chest pain. The patient underwent stress test and results reviewed. No nausea or vomiting. Oral intake is improving. No diarrhea. OBJECTIVE: Her vital signs reviewed. Neck: Supple. No JVD. Lungs: Bilateral good air entry present. Wheezing is less. CV: S1 and S2 heard. Abdomen: Soft, nontender. Bowel sounds present. HEALTH AND HUMAN PERFORMANCE PROFESSOR: Alert, awake able to move all 4 limbs. CONSIDERATION: 1. Acute asthmatic bronchitis, responding slowly to current treatment. I am going to stop Solu- Medrol, watch her on p.o. prednisone today. 2. Gastritis and reflux disease. We will optimize the treatment for reflux. 3. Chest pain. Stress test was very minimally positive. Plywood Layup Line Core Feeder following patient. 4. Hypertension, on Cardizem. 5. Supraventricular tachycardia. Antinuclear antibody was positive. 6. The patient is being followed up by a salon manager, will get outpatient treatment appointment. 7. I am going to watch patient today. I will talk to Dr. Palacios about discharge planning. 8. We will ambulate the patient in the room and hallway. 9. I am going to check appropriate lab today. If clinical condition permits, I am planning to discharge her tomorrow. cc: Sahil Sena MD
[2017-04-09] MEDS: NORCO-5 PO PRN (11:49)
[2017-04-09] MEDS: SYMBICORT 160/4.5 MICROGM INHALER INH SCH ×2 (16:18→20:10)
[2017-04-09] MEDS: LEVAQUIN 750 MG/D5W 750 MG/150 ML IVPB IV SCH (17:08)
[2017-04-09] MEDS: LOVENOX SUBQ SCH (17:08)
[2017-04-09] MEDS: SODIUM CHLORIDE 0.9% INJ SCH (17:08)
[2017-04-09] MEDS: PROTONIX IV SCH (17:08)
[2017-04-10] MEDS: DUONEB (A & A) INH SCH ×2 (04:16→10:19)
[2017-04-10] MEDS: CARAFATE PO SCH (08:32)
[2017-04-10] MEDS: PREDNISONE PO SCH (08:32)
[2017-04-10] MEDS: ESTRACE PO SCH (08:32)
[2017-04-10] MEDS: SEPTRA DS PO SCH (08:32)
[2017-04-10] MEDS: SINGULAIR PO SCH (08:32)
[2017-04-10] MEDS: SYNTHROID PO SCH (08:32)
[2017-04-10] MEDS: CARDIZEM CD PO SCH (08:32)
[2017-04-10] MEDS: ABREVA CREAM TOP SCH (08:33)
[2017-04-10] MEDS: ZOLOFT PO SCH (08:35)
[2017-04-10 08:49] VITALS: BP 152/77
[2017-04-10] MEDS: SYMBICORT 160/4.5 MICROGM INHALER INH SCH (10:21)
--- NOTE | 2017-04-10 11:28 | PROGRESS NOTE ---
DATE: 04/10/2017 Ms. Caldera has had an almost negative stress test except for a small size defect in the anterior apical area. Her IgG and gammaglobulins are slightly increased. AVANI is positive. ANCA is negative for vasculitis. Her white count is 7.25, hemoglobin 10.8, hematocrit 32.7. She is doing better and she wants to be discharged. We will discharge her today. -1 cc: MD Sahil Ontiveros MD
--- NOTE | 2017-04-10 23:58 | DISCHARGE SUMMARY ---
ADMISSION DATE: 04/02/2017 DISCHARGE DATE: 04/10/2017 FINAL DISCHARGE DIAGNOSES: 1. Acute asthmatic bronchitis not responding to outpatient treatment. 2. Supraventricular tachycardia. 3. Gastritis and reflux disease. 4. Sinusitis. 5. Hypertension. 6. Headache. 7. Hypothyroidism. 8. Rhinitis. 9. Sore in the nose. 10. Osteoarthritis. HOSPITAL COURSE: Ms Caldera, 72-year-old white female patient, known case of rhinitis, hypertension, gastritis and reflux disease, osteoarthritis had bronchitis and sinusitis not responding to outpatient treatment. The patient had cough, chest congestion, sinus drainage. I evaluated patient in the office, decided to admit her. The patient was started on IV hydration, IV antibiotics and steroid. The patient was doing fair. The patient had episode of chest pain associated with supraventricular tachycardia. Patient evaluated. I transferred her to ICU. Cardiology consult obtained and recommendation reviewed. The patient had echocardiogram done. Also the stress test done. Her Norvasc was changed to Cardizem. The patient still has cough and wheezing. Pulmonary consult obtained with Dr. Palacios. I did CT scan of the sinuses and head. Sinus CT did reveal maxillary sinusitis and minimal ethmoid sinus disease. The patient had CT scan of the head done because of the headache which revealed no evidence of acute intracranial pathology. Tiny left frontal sinus mucosal retention cyst. Her chest x-ray, no evidence of acute chest pathology. Because we entertained the possibility of aspiration we did barium swallow. The patient had mild presbyesophagus, cervical spondylosis, tiny hiatal hernia. The patient was complaining of chest pain. She underwent myocardial perfusion study which revealed ejection fraction of 82% and there was small burden of ischemia. Overall impression was low risk study based on the extremely small area of reversible ischemia. Dr. Palacios and nurse outreach case manager recommendation noted. Overall patient is doing fairly well. She still has some cough and wheezing. We decided to treat patient with antibiotics and tapering dose of prednisone as an outpatient. Continue bronchodilator treatment. The patient understood and agreed. I offered her ENT evaluation but patient does not want to go at this time as an outpatient. PHYSICAL EXAM: Vital signs: Noted. Lungs: Wheezing improved. CVS: S1 and S2 heard. Abdomen: Soft, globular. Bowel sounds present. Extremities: No cyanosis, clubbing. No acute DVT. ETHYLENE [employer]XIDE PANELBOARD OPERATOR: Alert, awake, able to move all 4 limbs. Overall patient is doing well. LAB DATA: Done yesterday hemoglobin 10.8, hematocrit 32.8, platelet count 189,000, WBC count 7.25. Electrolytes result reviewed. Serum protein electrophoresis negative for monoclonal antibody. AVANI screen results reviewed. ANCA screen was negative. PLAN: I advised patient to come for followup in a week in my office. Follow up with nurse outreach case manager and turkish rubber as scheduled. In case of more distress, call us back or go to emergency room. cc: Sahil Sena MD
== END 2017-04-10 12:27 | disposition home or self-care (01) ==
LOC: DIRADM 14:30 → 4N 15:30 → ICU 04-04 10:33 → 3N 04-08 09:41
PROVIDERS: ADMIT Internal Medicine; ATTEND Internal Medicine